=== PATIENT | female | born 1950 | race Caucasian/White ===

== ENCOUNTER → 2019-11-12 12:40 | Outpatient (CLI) | payer MEDICARE, SELFPAY ==
--- NOTE | ~2019-11-12 | MM_ITS ---
EXAMINATION: MM screening [facility] BI w bola HISTORY: Screening mammogram TECHNIQUE: Craniocaudal and mediolateral oblique 3-D tomosynthesis images were obtained and synthetic 2-D images were generated. CAD analysis was submitted and interpreted. COMPARISON: 02/26/2018, 10/27/2012, 05/23/2012 BREAST PARENCHYMAL COMPOSITION: There are scattered areas of fibroglandular density. FINDINGS: There is no evidence of suspicious mass, calcification, or architectural distortion to sugg est malignancy in either breast. There has been no suspicious interval change. IMPRESSION: 1. No mammographic evidence of malignancy. 2. Recommend routine screening mammography in one year. BI-RADS Category 1: Negative Reviewed, dictated and finalized at location A.
== END ==
PROVIDERS: PCP Family Medicine; Visit Provider Family Medicine
DX: Z12.31 Encounter for screening mammogram for malignant neoplasm of breast (principal)
CPT/HCPCS: 77063; 77067

== ENCOUNTER 2020-11-05 12:47 | Emergency (ER) | payer MEDICARE, SELFPAY ==
[2020-11-05 13:09] VITALS: BP 147/66; PULSE 70; RESP 16; TEMP 36.4; O2SAT 99
--- NOTE | 2020-11-05 13:25 | ED.GENADULT ---
HPI - General Adult General Chief complaint: Upper Respiratory Infection Stated complaint: cough/sore throat/chills Time Seen by Provider: 11/05/20 13:25 Source: patient Mode of arrival: ambulatory Limitations: no limitations History of Present Illness HPI narrative: 70-year-old female patient presents to the [facility] with complaints of cold symptoms that started 2 days ago. Patient states she has had runny nose, stuffy nose, congestion, sore throat and diarrhea along with muscle aches and fatigue. Patient states she is fully vaccinated against COVID-19. Denies ever having a COVID-19 infection before in the past. Denies being around anybody that has been infected with COVID-19 that she is aware of. Patient states she did call her primary doctor and they did prescribe her a Z-Dimas which she has had 2 pills of this already. Denies taking any antihistamines or any other [id number] medications. Related Data Home Medications Medication Instructions Recorded Confirmed azithromycin 250 mg PO DAILY 11/05/20 11/05/20 insulin degludec [Tresiba 1 unit SUBCUT DIRECTED 11/05/20 11/05/20 FlexTouch U-100] losartan 100 mg PO DAILY 11/05/20 11/05/20 metformin 500 mg PO DAILY 11/05/20 11/05/20 nebivolol [Bystolic] 10 mg PO DAILY 11/05/20 11/05/20 pen needle, diabetic [NovoTwist] 11/05/20 11/05/20 rosuvastatin 20 mg PO DAILY 11/05/20 11/05/20 spironolactone 25 mg PO DAILY 11/05/20 11/05/20 verapamil 120 mg PO DAILY 11/05/20 11/05/20 Allergies Allergy/AdvReac Type Severity Reaction Status Date / Time No Known Allergies Allergy Verified 11/05/20 13:39 Review of Systems Review of Systems: CONSTITUTIONAL: Denies fever, chills, or sweats. EYES: Denies visual changes, redness, or discharge. ENT: Positive rhinorrhea, congestion, sore throat, denies otalgia. CARDIOVASCULAR: Denies chest pain, palpitations, or edema. RESPIRATORY: Denies cough or dyspnea. GASTROINTESTINAL: Denies abdominal pain, nausea, vomiting, positive diarrhea. GENITOURINARY: Denies dysuria or hematuria. SKIN: Denies rash or itching. MUSCULOSKELETAL: Denies back pain, joint pain, or myalgia. NEUROLOGIC: Denies headache, numbness, or weakness. PSYCHIATRIC: Denies anxiety or depression. [facility] Past Medical History Medical History Cyst of left breast Diabetes Hypertension Meningioma Benign between eyes TIA (transient ischemic attack) Surgical History Surgical History H/O: hysterectomy History of appendectomy Hx of cholecystectomy Comments At the time of my signature I agree with nursing past medical history, surgical, social, and family history. There is no relevant family history pertinent to the presenting complaint. Exam Narrative: GENERAL: Well-appearing, well-nourished, and in no acute distress. HEAD: Normocephalic, atraumatic. EYES: PERRLA and EOMI. ENT: Nares with erythema and edema noted bilaterally r, no rhinorrhea or epistaxis. Mucous membranes moist. Posterior pharynx with no erythema, tonsillar edema, exudates or lesions present. Bilateral TMs are clear with no erythema or foreign bodies in the canal. NECK: Supple. No lymphadenopathy CHEST: Clear to auscultation. No respiratory distress. HEART: Regular rate and rhythm. No murmur heard. Normal peripheral pulses. ABDOMEN: Soft, nontender, nondistended, normal active bowel sounds. EXTREMITIES: Normal range of motion. No edema. SKIN: Warm, dry, no rash. NEURO: No focal deficits. Alert and oriented x3. Course Reevaluation(s) Reevaluation #1: Reevaluated patient notified her that her rapid Covid today is negative. We will go ahead and send a PCR off since she is in the high risk category for Covid. Discussed with patient I am to go ahead and send her home with an antihistamine and I would encourage her to take daily for her symptoms. Discussed with her that she should stay home an
[2020-11-07 17:27] LABS: SARS-CoV-2 RNA PCR Negative
== END 2020-11-05 14:02 | disposition home or self-care (01) ==
PROVIDERS: Emergency Provider Nurse Practitioner Family; PCP Family Medicine
DX: J06.9 Acute upper respiratory infection, unspecified (principal); E11.9 Type 2 diabetes mellitus without complications; I10 Essential (primary) hypertension; Z86.73 Personal history of transient ischemic attack (TIA), and cerebral infarction without residual deficits; Z79.4 Long term (current) use of insulin; Z20.822 Contact with and (suspected) exposure to COVID-19
CPT/HCPCS: 87426; 87880; 99213; C9803; G0463; U0003; U0005

== ENCOUNTER → 2020-12-26 15:11 | Outpatient (CLI) | payer MEDICARE, SELFPAY ==
--- NOTE | ~2020-12-26 | MM_ITS ---
EXAMINATION: MM screening [facility] BI w bola HISTORY: Screening mammogram TECHNIQUE: Craniocaudal and mediolateral oblique 3-D tomosynthesis images were obtained and synthetic 2-D images were generated. CAD analysis was submitted and interpreted. COMPARISON: 11/12/2019, 02/26/2018, 10/27/2012, 05/23/2012 BREAST PARENCHYMAL COMPOSITION: There are scattered areas of fibroglandular density. FINDINGS: There is no evidence of suspicious mass, calcification, or architectural distortion to sugg est malignancy in either breast. There has been no suspicious interval change. IMPRESSION: 1. No mammographic evidence of malignancy. 2. Recommend routine screening mammography in one year. BI-RADS Category 1: Negative Reviewed, dictated and finalized at location A. ATTENDANT
== END ==
PROVIDERS: Visit Provider Family Medicine
DX: Z12.31 Encounter for screening mammogram for malignant neoplasm of breast (principal)
CPT/HCPCS: 77063; 77067

== ENCOUNTER → 2021-05-31 15:26 | Outpatient (CLI) | payer MEDICARE, OTHER, SELFPAY ==
--- NOTE | ~2021-05-31 | XR_ITS ---
EXAMINATION: XR chest 2V DATE: 05/31/2021 15:55 INDICATION: Shortness of breath. TECHNIQUE: Frontal and lateral views of the chest were obtained. COMPARISON: CT abdomen and pelvis 11/30/2012 FINDINGS: The chest demonstrates clear lungs without pneumonia, pleural effusion, or pneumothorax. Th e heart size is normal. IMPRESSION: 1. No acute cardiopulmonary disease. Reviewed, dictated and finalized at location B.
== END ==
PROVIDERS: PCP Physician Assistant Medical; Visit Provider Physician Assistant Medical
DX: R06.02 Shortness of breath (principal)
CPT/HCPCS: 71046

== ENCOUNTER 2021-08-16 12:28 | Emergency (ER) | payer MEDICARE, OTHER, SELFPAY ==
[2021-08-16 12:41] VITALS: BP 157/63; PULSE 64; RESP 16; TEMP 36.6; O2SAT 99
--- NOTE | 2021-08-16 13:54 | ED.GENADULT ---
HPI - General Adult General Chief complaint: Unspecified Stated complaint: tingling r side of face Time Seen by Provider: 08/16/21 13:54 Source: patient, family, RN notes reviewed and old records reviewed Mode of arrival: ambulatory Limitations: no limitations History of Present Illness HPI narrative: 70 year old female accompanied by spouse presents to express care with complaints of intermittent tingling to the right side of her face for the past week and since yesterday she feels like she has some swelling to the right side of her neck. Patient reports history of meningioma between eyes. Patient reports that she feels some tingling to right side of mouth today intermittently. Patient denies any known injury to neck full ROM noted with some posterior lateral discomfort stated with movement to right. Patient verbalizes past history of TIA, hypertension. Patient moves all extremities on own power. Patient was advised to go to ED this morning when patient called clinic with her stated symptoms but came here instead. MD complaint: tingling to right side of her face Onset (ago): week(s) (1) Related Data Home Medications Medication Instructions Recorded Confirmed insulin degludec 100 unit/mL (3 1 unit subcut DIRECTED 11/05/20 08/16/21 mL) subcutaneous pen (Tresiba FlexTouch U-100 insulin) losartan 100 mg tablet 100 mg PO DAILY 11/05/20 08/16/21 metformin 500 mg tablet,extended 500 mg PO DAILY 11/05/20 08/16/21 release 24 hr nebivolol 10 mg tablet (Bystolic) 10 mg PO DAILY 11/05/20 08/16/21 pen needle, diabetic 32 gauge x 11/05/20 08/16/2102/15 (NovoTwist) rosuvastatin 20 mg tablet 20 mg PO DAILY 11/05/20 08/16/21 spironolactone 25 mg tablet 25 mg PO DAILY 11/05/20 08/16/21 verapamil 120 mg tablet 120 mg PO DAILY 11/05/20 08/16/21 aspirin 81 mg PO DAILY 08/16/21 08/16/21 Allergies Allergy/AdvReac Type Severity Reaction Status Date / Time No Known Allergies Allergy Verified 08/16/21 15:36 Review of Systems Review of Systems: CONSTITUTIONAL: Denies fever, chills, or sweats. EYES: Denies visual changes, redness, or discharge.chronic left eye blindness ENT: Denies rhinorrhea, congestion, sore throat, or otalgia. CARDIOVASCULAR: Denies chest pain, palpitations, or edema. RESPIRATORY: Denies cough or dyspnea. GASTROINTESTINAL: Denies abdominal pain, nausea, vomiting, or diarrhea. GENITOURINARY: Denies dysuria or hematuria. SKIN: Denies rash or itching. MUSCULOSKELETAL: Denies back pain, joint pain, or myalgia.right sided neck pain posterior aspect NEUROLOGIC: Denies headache, numbness, or weakness.positive for tingling episodes right side of face PSYCHIATRIC: Denies anxiety or depression. All systems reviewed & are unremarkable except as noted in HPI and below PMFSH Past Medical History Medical History (Updated 08/19/21 @ 11:33 by Sarah Munguia NP) COVID-29 Jun 2021 Cyst of left breast Diabetes Hypertension Meningioma Benign between eyes TIA (transient ischemic attack) Surgical History Surgical History H/O: hysterectomy History of appendectomy Hx of cholecystectomy Social History Social History (Updated 08/19/21 @ 11:33 by Sarah Munguia NP) Smoking status: Never smoker Substance use: never Living arrangements: with family Gender identity (if verbalized by the patient): Female Comments At time of signature, agree with nursing past medical, surgical, social and family history. There is no relevant family history pertinent to the presenting complaint Exam Narrative: GENERAL: Well-appearing, well-nourished, and in no acute distress. HEAD: Normocephalic, atraumatic. EYES: PERRLA and EOMI.blind left eye with no visual changes to right eye ENT: Nares clear, no rhinorrhea or epistaxis. Mucous membranes moist. NECK: Supple.no lymphadenopathy posterior right neck pain CHEST: Clear to auscultation. No respiratory distress.SAO2 99% on
== END 2021-08-16 14:15 | disposition short-term general hospital (02) ==
PROVIDERS: Emergency Provider Registered Nurse
DX: R20.2 Paresthesia of skin (principal); M54.2 Cervicalgia; E11.9 Type 2 diabetes mellitus without complications; I10 Essential (primary) hypertension; Z86.73 Personal history of transient ischemic attack (TIA), and cerebral infarction without residual deficits; Z79.4 Long term (current) use of insulin
CPT/HCPCS: 99213; G0463

== ENCOUNTER 2021-08-16 15:19 | Emergency (ER) | payer MEDICARE, OTHER, SELFPAY ==
[2021-08-16] VITALS (13 sets, daily range): BP systolic 134–158; BP diastolic 45–86; PULSE 62–68; RESP 14–20; TEMP 36.6; O2SAT 97–100
--- NOTE | ~2021-08-16 | XR_ITS ---
EXAMINATION: XR chest 1V portable Exam Date/Time: 08/16/2021 15:45 CDT HISTORY: right sided facial numbness,SWELLING,SORENESS Comparison: None available. RESULT: Lines, tubes, and devices: None. Lungs and pleura: Clear. Cardiomediastinal silhouette: Stable cardiomediastinal silhouette. Other: No acute osseous or upper abdominal finding. IMPRESSION: No acute cardiopulmonary process. Reviewed, dictated and finalized at location K.
--- NOTE | ~2021-08-16 | CT_ITS ---
Patient Name: Patient Name MR#: Patient MRN Accession#: Accession Numbers EXAMINATION: CTA brain carotid DATE: 08/16/2021 16:52 INDICATION: intermittent facial tingling TECHNIQUE: Computed tomographic angiography (CTA) of the head was performed without and with 100 mL O mnipaque-300 intravenous contrast. CTA of the neck was performed with intravenous contrast. Automated exposure control and iterative reconstruction technique were employed. The dose-length product was 1 754.05 mGy-cm. Maximum intensity projection and volume rendered 3D-reconstructions were created by bernard adame technologist on a separate workstation. COMPARISON: None. FINDINGS: CTA NECK: Aortic arch and proximal great vessels: Mild calcified plaque at the bovine aortic arch. Right common carotid, carotid bifurcation, and internal carotid artery: Mild calcified and noncalcifi ed plaque at the carotid bifurcation.There is 0% stenosis of the proximal right internal carotid anna ry relative to normal distal artery lumen diameter (NASCET criteria). Left common carotid, carotid bifurcation, and internal carotid artery: Mild calcified and noncalcifie d plaque at the carotid bifurcation.There is 0% stenosis of the proximal left internal carotid artery relative to normal distal artery lumen diameter (NASCET criteria). Vertebral arteries: Moderate calcified plaque at the origin of the left vertebral artery, without sev ere stenosis. Right vertebral artery is dominant, Other findings: None. CTA HEAD: No large vessel occlusion, aneurysm, high flow vascular malformation, nidus or extravasation. Mild ca lcified plaques in the cavernous carotid and M1 segments of the bilateral middle cerebral arteries, w ithout significant stenosis. Persistent origin of the left TECHNICAL REP. CT BRAIN: No acute large vessel infarct, intracranial hemorrhage, mass, or hydrocephalus. Likely meningioma at the midline in the anterior cranial fossa. IMPRESSION: 1. No acute large vessel infarct or large vessel occlusion in the brain. 2. No occlusion or significant stenosis in the carotid or vertebral arteries. Reviewed, dictated and finalized at location K.
--- NOTE | 2021-08-16 15:33 | ECG_ITS ---
Measurements Intervals [place] Rate: 59 P: 31 MO: 178 QRS: 9 QRSD: 85 T: 42 QT: 421 QTc: 420 Interpretive Statements SINUS BRADYCARDIA DELAYED PRECORDIAL R/S TRANSITION LOW QRS VOLTAGE IN PRECORDIAL LEADS BORDERLINE ECG Electronically Signed On 08-16-2021 16:37:54 CDT by Jevon Tan D.O.
[2021-08-16 15:45] LABS: Basophils Percent Auto 0.4 % (0.2-1.2); Eosinophils Absolute Auto 0.1 K/mm3 (0-0.3); Eosinophils Percent Auto 0.8 % (0-4.4); Hematocrit 39.8 % (37.0-47.0); Immature Granulocyte Absolute 0.02 K/mm3 (0.00-0.031); Immature Granulocyte Percent A 0.2 % (0-0.5); Lymphocytes Absolute Auto 2.12 K/mm3 (0.9-3.2); Lymphocytes Percent Auto 23.8 % (18.3-44.2); Mean Corpuscular HGB Conc 32.7 g/dl (32-36); Mean Corpuscular Hemoglobin 29.8 pg (26-34); Mean Corpuscular Volume 91.3 fl (80-100); Mean Platelet Volume 9.3 fl (7.4-10.4); Monocytes Absolute Auto 0.7 K/mm3 (0.1-0.6); Monocytes Percent Auto 7.5 % (2.6-8.5); Neutrophils Percent Auto 67.3 % (45.5-73.1); Platelet Count Result 257 k/mm3 (150-375); Red Blood Count 4.36 M/mm3 (4.2-5.4); Red Cell Distribution Width 12.9 % (11.5-14.5); White Blood Count 8.9 K/mm3 (4.5-10.0)
--- NOTE | 2021-08-16 15:54 | PC.NURSE ---
blood glucose was 157 at 1553
[2021-08-16 15:56] LABS: Glucose Point of Care 157 mg/dl (65-105)
[2021-08-16 15:56] LABS: Alanine Aminotransferase 29 U/L (6-35); Albumin Level 4.9 g/dL (3.5-5.1); Alkaline Phosphatase 101 U/L (38-126); Anion Gap 7 mmol/L (8-16); Aspartate Amino Transferase 27 U/L (14-36); Bilirubin,Total 0.7 mg/dL (0.2-1.3); Blood Urea Nitrogen 19 mg/dL (7-17); Calcium 9.7 mg/dL (8.4-10.2); Carbon Dioxide 28 mmol/L (22-30); Chloride 100 mmol/L (98-107); Estimated CRCL calculation 56 ml/min; Estimated Glomerular Filt Rate > 60; Glucose 168 mg/dL (65-110); Potassium 4.3 mmol/L (3.4-5.0); Sodium 135 mmol/L (137-145)
[2021-08-16 15:59] LABS: Prothrombin Time 13.1 Seconds (11.1-14.7)
[2021-08-16 16:00] LABS: Partial Thromboplastin Time 27.2 SECONDS (22.3-36.8)
[2021-08-16 16:07] LABS: Troponin I < 0.012 ng/mL (0.000-0.034)
--- NOTE | 2021-08-16 18:12 | ED.NEUROSD ---
HPI - Neuro Symptoms/Deficit General Chief Complaint: Neuro Symptoms/Deficit Stated Complaint: right face tingling x1 week Time Seen by Provider: 08/16/21 15:50 History of Present Illness HPI Narrative: Patient is a 70-year-old female who presents ER with right facial tingling. Occurring intermittently for less than a second over the last week. Associate with some pain in her right neck musculature. No fevers or chills or sweats. No slurred speech or facial droop. No weakness or numbness in arm or leg. No history of stroke. 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 Referred here from urgent care. Related Data Home Medications Medication Instructions Recorded Confirmed insulin degludec 100 unit/mL (3 1 unit subcut DIRECTED 11/05/20 08/16/21 mL) subcutaneous pen (Tresiba FlexTouch U-100 insulin) losartan 100 mg tablet 100 mg PO DAILY 11/05/20 08/16/21 metformin 500 mg tablet,extended 500 mg PO DAILY 11/05/20 08/16/21 release 24 hr nebivolol 10 mg tablet (Bystolic) 10 mg PO DAILY 11/05/20 08/16/21 pen needle, diabetic 32 gauge x 11/05/20 08/16/2102/15 (NovoTwist) rosuvastatin 20 mg tablet 20 mg PO DAILY 11/05/20 08/16/21 spironolactone 25 mg tablet 25 mg PO DAILY 11/05/20 08/16/21 verapamil 120 mg tablet 120 mg PO DAILY 11/05/20 08/16/21 aspirin 81 mg PO DAILY 08/16/21 08/16/21 Allergies Allergy/AdvReac Type Severity Reaction Status Date / Time No Known Allergies Allergy Verified 08/16/21 15:36 Review of Systems Review of Systems: All systems reviewed & are unremarkable except as noted in HPI and below Constitutional: Constitutional: Denies chills, Denies fatigue and Denies fever(s) Eyes: Eyes: Denies change in vision Cardiovascular: Cardiovascular: Denies chest pain, Denies rapid heart rate and Denies radiating jaw, neck or arm pain Respiratory: Respiratory: Denies cough and Denies dyspnea Gastrointestinal: Gastrointestinal: Denies abdominal pain, Denies nausea and Denies vomiting Neurologic: Denies syncope, Denies headache(s), Denies focal weakness and Denies numbness Comments: Right facial tingling PMFSH Past Medical History Medical History Cyst of left breast Diabetes Hypertension Meningioma Benign between eyes TIA (transient ischemic attack) Surgical History Surgical History H/O: hysterectomy History of appendectomy Hx of cholecystectomy Exam Narrative: GENERAL: Well-appearing, well-nourished, and in no acute distress. HEAD: Normocephalic, atraumatic. EYES: Left eye strabismus that causes her to look medially. Blind in left eye. ENT: Mucous membranes moist. Neck: No carotid bruit. Supple. Mild tenderness over the right paraspinal musculature without swelling when compared to the left. CHEST: Clear to auscultation. No respiratory distress. HEART: Regular rate and rhythm. Normal peripheral pulses.EXTREMITIES: Normal range of motion. No edema. SKIN: Warm, dry, no rash. NEURO: No focal deficits. No upper or lower extremity drift. No facial droop. No sharp or soft touch deficit of the face. Alert and oriented x3. PSYCH: Normal mood and affect. Course Course Emergency Course: Patient informed results. Resting comfortably. Discharge home. Vital Signs Vital signs: Vital Signs Temperature 97.9 F 08/16/21 15:24 Pulse Rate 64 08/16/21 15:24 Respiratory Rate 19 08/16/21 15:24 Blood Pressure 158/74 H 08/16/21 15:24 Pulse Oximetry 97 08/16/21 15:24 Oxygen Delivery Room Air 08/16/21 15:24 Temperature 97.9 F 08/16/21 15:24 Pulse Rate 66 08/16/21 17:16 Respiratory Rate 19 08/16/21 17:16 Blood Pressure 143/45 H 08/16/21 17:16 Pulse Oximetry 99 08/16/21 17:16 Oxygen Delivery Room Air 08/16/21 15:24 MDM - Neuro Symptoms/Deficit Lab Data Result diagrams: 08/16/21 15:38 08/16/21 15:38 Labs: Lab
== END 2021-08-16 18:29 | disposition home or self-care (01) ==
PROVIDERS: Emergency Medicine; Emergency Provider Emergency Medicine; PCP Family Medicine
DX: R20.2 Paresthesia of skin (principal); M54.2 Cervicalgia; E11.9 Type 2 diabetes mellitus without complications; I10 Essential (primary) hypertension; Z86.73 Personal history of transient ischemic attack (TIA), and cerebral infarction without residual deficits; Z79.4 Long term (current) use of insulin; Z79.82 Long term (current) use of aspirin; Z79.899 Other long term (current) drug therapy
CPT/HCPCS: 36415; 70496; 70498; 71045; 80053; 82948; 84484; 85025; 85610; 85730; 93005; 99284; Q9967

== ENCOUNTER → 2022-05-28 11:58 | Outpatient (CLI) | payer MEDICARE, SELFPAY ==
--- NOTE | ~2022-05-28 | MM_ITS ---
EXAMINATION: MM screening [facility] BI w bola HISTORY: Screening mammogram TECHNIQUE: Craniocaudal and mediolateral oblique 3-D tomosynthesis images were obtained and synthetic 2-D images were generated. CAD analysis was submitted and interpreted. COMPARISON: 12/26/2020, 11/12/2019, 02/26/2018 BREAST PARENCHYMAL COMPOSITION: There are scattered areas of fibroglandular density. FINDINGS: No suspicious mass, calcification, or architectural distortion are identified in either mihir ast to suggest malignancy. There has been no suspicious interval change. IMPRESSION: 1. No mammographic evidence of malignancy. 2. Recommend routine screening mammography in one year. BI-RADS Category 1: Negative Reviewed, dictated and finalized at location A.
== END ==
PROVIDERS: PCP Family Medicine; Visit Provider Family Medicine
DX: Z12.31 Encounter for screening mammogram for malignant neoplasm of breast (principal)
CPT/HCPCS: 77063; 77067

== ENCOUNTER → 2023-02-27 12:59 | Outpatient (CLI) | payer MEDICARE, SELFPAY ==
--- NOTE | ~2023-02-27 | DEXA_ITS ---
Bone Density Report Name: ISIDRO OTOOLE Age: 72 Sex: Female Ethnicity: White Date of : 1950 Indication: postmenopausal; screening for osteoporosis; height loss; hysterectomy; Referring Provider: PENNYANIRUDH Study: Bone densitometry was performed. Exam Date: February 27, 2023 Accession number: [id number] Bone Density: Region BMD T-score Z-score Classification AP Spine (L1-L4) 1.291 2.2 4.5 Normal Femoral Neck (Left) 1.016 1.5 3.5 Normal Total Hip (Left) 1.242 2.5 4.2 Normal Femoral Neck (Right) 1.021 1.5 3.5 Normal Total Hip (Right) 1.134 1.6 3.3 Normal Total Hip Mean 1.188 2.1 3.8 Normal World Health Organization criteria for BMD impression classify patients as: Normal (T-score at or above -1.0), Osteopenia (T-score between -1.0 and -2.5), or Osteoporosis (T-score at or below -2.5). 10-year Fracture Risk: FRAX not reported because: All T-scores for Spine Total, Hip Total, Femoral Neck at or above -1.0 Clinical Information Provided by Patient: Has used the following medications: Vitamin D Has the following medical conditions: Hysterectomy Patient maximum height was 62.5 Menopause Age: 36 No regular weight bearing exercise Drinks caffeinated beverages Onset of menses at age 11 Number of children 0 Impression: The patient has normal bone mass. Discussion: LOW RISK OF FRACTURE; BONE DENSITY IS WELL ABOVE THE MINIMUM DESIRABLE LEVEL AND ABOVE AVERAGE FOR AGE AND SEX AT ALL SKELETAL SITES TESTED. This person's bone density is above expected limits for age and sex. This is rarely clinically significant, but should be pursued if there are significant musculoskeletal complaints. The patient should follow a healthful lifestyle (good nutrition with adequate calcium and vitamin D, and appropriate weight-bearing exercise). Follow-Up: Consider repeating this study in 5 years or sooner if there is some new clinical indication. Reported by: JESSICA on 02/27/2023 1:34:00 PM. Reviewed, dictated and finalized at location AEmelina FORBES
== END ==
PROVIDERS: PCP Physician Assistant Medical; Visit Provider Physician Assistant Medical
DX: N95.9 Unspecified menopausal and perimenopausal disorder (principal)
CPT/HCPCS: 77080

== ENCOUNTER 2023-09-27 15:02 | Emergency (ER) | payer MEDICARE, OTHER, SELFPAY ==
--- NOTE | 2023-09-27 15:13 | ED.URI ---
HPI - URI/Sore Throat General Chief Complaint: Upper Respiratory Infection Stated Complaint: congestion,cough,scratchy throat,fatigue Time Seen by Provider: 09/27/23 15:13 Source: patient Mode of arrival: ambulatory Limitations: no limitations History of Present Illness HPI Narrative: 73-year-old female presents with complaint of fatigue, generalized weakness, congestion, cough for 2 days. Patient called her primary care physician today regarding symptoms and was told she needed COVID test. Patient states she has home COVID test but her eyesight is bad and was not able to complete the test at home. No chest pain or shortness breath. Well-appearing. All systems reviewed and negative except as noted above. Related Data Home Medications Medication Instructions Recorded Confirmed insulin degludec 100 unit/mL (3 1 unit subcut DIRECTED 11/05/20 09/27/23 mL) subcutaneous pen (Tresiba FlexTouch U-100 insulin) losartan 100 mg tablet 100 mg PO DAILY 11/05/20 09/27/23 metformin 500 mg tablet,extended 500 mg PO DAILY 11/05/20 09/27/23 release 24 hr nebivolol 10 mg tablet (Bystolic) 10 mg PO DAILY 11/05/20 09/27/23 pen needle, diabetic 32 gauge x 11/05/20 09/27/2302/15 (NovoTwist) rosuvastatin 20 mg tablet 20 mg PO DAILY 11/05/20 09/27/23 spironolactone 25 mg tablet 25 mg PO DAILY 11/05/20 09/27/23 verapamil 120 mg tablet 120 mg PO DAILY 11/05/20 09/27/23 aspirin 81 mg PO DAILY 08/16/21 09/27/23 Allergies Allergy/AdvReac Type Severity Reaction Status Date / Time No Known Allergies Allergy Verified 09/27/23 15:03 Review of Systems Review of Systems: CONSTITUTIONAL: Denies fever, chills, or sweats. reports fatigue. EYES: Denies visual changes, redness, or discharge. ENT: Reports rhinorrhea, congestion. Denies sore throat, or otalgia. CARDIOVASCULAR: Denies chest pain, palpitations, or edema. RESPIRATORY: Reports cough. Denies dyspnea. GASTROINTESTINAL: Denies abdominal pain, nausea, vomiting, or diarrhea. GENITOURINARY: Denies dysuria or hematuria. SKIN: Denies rash or itching. MUSCULOSKELETAL: Denies back pain, joint pain, or myalgia. NEUROLOGIC: Denies headache, numbness, or weakness. PSYCHIATRIC: Denies anxiety or depression. All other systems reviewed are negative, except as documented in HPI. [facility] Past Medical History Medical History (Updated 09/27/23 @ 15:29 by Haydee Simons NP) COVID-29 Jun 2021 Cyst of left breast Diabetes Hypertension Meningioma Benign between eyes TIA (transient ischemic attack) Surgical History Surgical History H/O: hysterectomy History of appendectomy Hx of cholecystectomy Social History Social History (Updated 08/19/21 @ 11:33 by Sarah Munguia NP) Smoking status: Never smoker Substance use: never Living arrangements: with family Gender identity (if verbalized by the patient): Female Comments At time of signature, agree with nursing past medical, surgical, social and family history. There is no relevant family history pertinent to the presenting complaint. Exam Narrative: GENERAL: This is a well-nourished, well-developed patient, in no apparent distress. HEAD: normocephalic, atraumatic. EYES: PERRL. Sclera clear/white. Vision is grossly intact. EARS: External ears normal, auditory canals clear and without drainage, TMs normal without perforation. Hearing grossly intact. NOSE: External nose normal with mild congestion and clear nasal drainage THROAT: Mucous membranes moist, erythematous without swelling or exudates NECK: Neck supple, non-tender without lymphadenopathy, masses or thyromegaly. CARDIOVASCULAR: Regular rate and rhythm without murmurs, gallops, or rubs. RESPIRATORY: Clear to auscultation. Breath sounds equal bilaterally. No wheezes, rales, or rhonchi. SKIN: warm, Dry, intact with no suspicious lesions or rash, good texture and turgor. NEURO: awake, jose
[2023-09-27 15:20] VITALS: BP 142/59; PULSE 61; RESP 17; TEMP 36.6; O2SAT 99
== END 2023-09-27 15:41 | disposition home or self-care (01) ==
PROVIDERS: Emergency Provider Nurse Practitioner Family; PCP Physician Assistant Medical
DX: U07.1 COVID-19 (principal); E11.9 Type 2 diabetes mellitus without complications; Z79.4 Long term (current) use of insulin; Z79.84 Long term (current) use of oral hypoglycemic drugs; I10 Essential (primary) hypertension; Z86.73 Personal history of transient ischemic attack (TIA), and cerebral infarction without residual deficits; Z86.16 Personal history of COVID-19; Z79.82 Long term (current) use of aspirin
CPT/HCPCS: 87426; 99213; G0463

== ENCOUNTER 2024-08-18 12:39 | Outpatient (CLI) | payer MEDICARE, OTHER, SELFPAY ==
--- NOTE | ~2024-08-18 | MM_ITS ---
EXAMINATION: MM screening [facility] BI w bola HISTORY: Screening TECHNIQUE: Craniocaudal and mediolateral oblique 3-D tomosynthesis images were obtained and synthetic 2-D images were generated. CAD analysis was submitted and interpreted. COMPARISON: Comparison to multiple prior studies sequentially, with oldest reviewed study dated 02/26. BREAST PARENCHYMAL COMPOSITION: Not dense: There are scattered areas of fibroglandular density. FINDINGS: There is no evidence of suspicious mass, calcification, or architectural distortion to sugg est malignancy in either breast. There has been no suspicious interval change. IMPRESSION: 1. No mammographic evidence of malignancy. 2. Recommend routine screening mammography in one year. BI-RADS Category 1: Negative Reviewed, dictated and finalized at location A.
== END 2024-08-18 12:40 | disposition home or self-care (01) ==
LOC: MICIMG 12:39
PROVIDERS: PCP Physician Assistant Medical; Visit Provider Physician Assistant Medical
DX: Z12.31 Encounter for screening mammogram for malignant neoplasm of breast (principal)
CPT/HCPCS: 77063; 77067